=== PATIENT | female | born 1990 ===

== ENCOUNTER 2017-11-22 15:31 | Outpatient (CLI) | payer OTHER ==
[~2017-11-22 15:31] MED LIST: DECADRON P4 MG/ML-1M IH; FLEXERIL10 MG PO; TORADOL60 MG IM; VOLTAREM 50 MG PO
== END 2017-11-22 15:36 | disposition home or self-care (01) ==
LOC: LAB 15:31
DX: Z11.3 Encounter for screening for infections with a predominantly sexual mode of transmission (principal)

== ENCOUNTER 2017-12-21 07:59 | Emergency (ER) | payer OTHER ==
[~2017-12-21] VITALS: Ht 165.1 cm; Wt 68.0 kg
== END 2017-12-21 13:07 | disposition home or self-care (01) ==
LOC: ER 07:59
DX: R42 Dizziness and giddiness (principal)

== ENCOUNTER 2018-06-04 20:46 | Emergency (ER) | payer OTHER ==
[~2018-06-04] VITALS: Ht 165.1 cm; Wt 67.1 kg
== END 2018-06-04 22:42 | disposition home or self-care (01) ==
LOC: ER 20:46
DX: S93.402A Sprain of unspecified ligament of left ankle, initial encounter (principal); X50.3XXA Overexertion from repetitive movements, initial encounter; Y93.89 Activity, other specified; Y92.89 Other specified places as the place of occurrence of the external cause; Y99.8 Other external cause status